=== PATIENT | female | born 1975 | race Caucasian/White ===

== ENCOUNTER 2020-04-18 10:49 | Outpatient (CLI) | payer OTHER, SELFPAY ==
[2020-04-18 11:54] LABS: Basophils Percent Auto 0.6 % (0.2-1.2); Eosinophils Absolute Auto 0.3 K/mm3 (0-0.3); Eosinophils Percent Auto 4.1 % (0-4.4); Hematocrit 36.8 % (37.0-47.0); Hemoglobin 12.4 g/dL (12.0-15.0); Immature Granulocyte Absolute 0.03 K/mm3 (0.00-0.031); Immature Granulocyte Percent A 0.4 % (0-0.5); Lymphocytes Absolute Auto 2.57 K/mm3 (0.9-3.2); Lymphocytes Percent Auto 36.2 % (18.3-44.2); Mean Corpuscular HGB Conc 33.7 g/dl (32-36); Mean Corpuscular Volume 89.1 fl (80-100); Monocytes Absolute Auto 0.7 K/mm3 (0.1-0.6); Monocytes Percent Auto 10.4 % (2.6-8.5); Neutrophils Absolute Auto 3.4 K/mm3 (1.3-6.7); Neutrophils Percent Auto 48.3 % (45.5-73.1); Platelet Count Result 226 k/mm3 (150-375); Red Blood Count 4.13 M/mm3 (4.2-5.4); Red Cell Distribution Width 12.1 % (11.5-14.5); White Blood Count 7.1 K/mm3 (4.5-10.0)
[2020-04-18 12:12] LABS: CRP 0.7 mg/dL (<1.0)
[2020-04-18 12:39] LABS: Erythrocyte Sedimentation Rate 17 mm/hr (0-20)
[2020-04-18 12:54] LABS: Rheumatoid Factor < 8.6 IU/ML (<12)
[2020-04-21 21:31] LABS: Anti Cyclic Citrullinated Pept <16 Units (<20)
== END 2020-04-18 10:50 | disposition home or self-care (01) ==
PROVIDERS: PCP Physician Assistant; Visit Provider Nurse Practitioner Family
DX: M25.50 Pain in unspecified joint (principal)
CPT/HCPCS: 36415; 85025; 85652; 86140; 86200; 86430

== ENCOUNTER 2020-05-23 00:22 | Outpatient (CLI) | payer OTHER, SELFPAY ==
[2020-05-23 18:26] LABS: SARS-CoV-2 RNA PCR Negative
== END 2020-05-23 00:23 | disposition home or self-care (01) ==
LOC: ANHCOVIDDT 00:22
PROVIDERS: Family Provider Internal Medicine; PCP Physician Assistant; Visit Provider Internal Medicine Gastroenterology
DX: Z01.812 Encounter for preprocedural laboratory examination (principal); Z20.822 Contact with and (suspected) exposure to COVID-19
CPT/HCPCS: C9803; U0003; U0005

== ENCOUNTER 2020-05-26 00:49 | Day surgery (SDC) | payer OTHER, SELFPAY ==
[2020-05-19 11:39] VITALS: BMI 31.0
[2020-05-26 12:57] VITALS: BP 104/66; PULSE 62; RESP 18; TEMP 36.8; O2SAT 99; BMI 30.2
[2020-05-26] MEDS: LACTATED RINGERS 1,000 ML 150 ML IV CONT (13:20)
--- NOTE | 2020-05-26 13:33 | WPDGICN ---
GI Consult Note Consult date/time: 05/26/20 13:33 HPI: Reason for visit is colonoscopy. This very pleasant lady's being seen in consultation the request of the primary physician. Impression: Here have a very pleasant lady with a history of chronic constipation. She does have episodes of diarrhea. His compatible with IBS. History pancreatitis. Migraine cephalgia. Recommendation: Colonoscopy. History: This very pleasant lady's being visit for chronic constipation. Patient states that she may go for several days without bowel movement. Then she will have diarrhea. Hematochezia, melena colic stools at night. Nausea, vomiting and hematemesis are denied. Patient does have a history of pancreatitis in the past. She does complain of some stomach soreness with the preparation today. Patient is here for colonoscopy. Physical examination: General: very pleasant patient in no acute distress. HEENT: Head was normocephalic sclerae is clear mouth without masses neck was supple. Heart: Rate rhythm regular without S3 or S4. Lungs: CTA. Abdomen: Soft with no guarding or rigidity. Bowel sounds were active. Neurologic: Cranial nerves 2 through 12 intact. No focal defects. No clonus. Musculoskeletal system: Revealed no joint tenderness or swelling no muscle atrophy. Extremities: Reveal no significant edema. Skin: Warm and dry with normal turgor. Mental status: intact. Patient is alert and oriented. Review of Systems Review of Systems: All systems reviewed & are unremarkable except as noted in HPI and below PMFSH Past Medical History Medical History (Updated 05/26/20 @ 13:33 by Rudy Roach DO) Anxiety Eczema HLD (hyperlipidemia) Joint pain Migraines Nausea Pancreatitis Right elbow pain Seasonal allergies Surgical History Surgical History H/O left wrist surgery Hx of section Hx of cholecystectomy Hx of tonsillectomy S/P bilateral foot surgery Family History Family History Mother Hypertension Family history of gastrointestinal disorder Other Diabetes mellitus Heart disease Malignant neoplasm Parkinsons disease Social History Social History Smoking status: Never smoker Alcohol intake: current Substance use: never Substance use type: does not use Gender identity (if verbalized by the patient): Female Spiritual care concerns: No Meds Home Medications and Allergies Home Medications Medication Instructions Recorded Confirmed Type fluoxetine 10 mg capsule 10 mg PO DAILY 10/07/19 05/19/20 History propranolol 60 mg tablet 60 mg PO Q12H 10/07/19 05/19/20 History ondansetron HCl 4 mg tablet 4 mg PO Q8H PRN 03/01/20 05/19/20 History rizatriptan 10 mg tablet 10 mg PO ONCE PRN 03/01/20 05/19/20 History Probiotic 1 cap PO DAILY 05/19/20 05/19/20 History guar gum [Benefiber (guar gum)] 1 g PO DAILY 05/19/20 05/19/20 History cuvwocbekwrp-byi-ryoj-FA-vit K 1 tablet PO DAILY 05/19/20 05/19/20 History [Adults Multivitamin] omega-3 fatty acids [[place] 3] 690 mg PO DAILY 05/19/20 05/19/20 History valacyclovir 500 mg PO BID PRN 05/19/20 05/19/20 History Allergies Allergy/AdvReac Type Severity Reaction Status Date / Time atropine [From ] Allergy Intermediate Hives Verified 05/26/20 12:56 codeine Allergy Intermediate Hives Verified 05/26/20 12:56 hyoscyamine [From ] Allergy Intermediate Hives Verified 05/26/20 12:56 phenobarbital [From ] Allergy Intermediate Hives Verified 05/26/20 12:56 scopolamine [From ] Allergy Intermediate Hives Verified 05/26/20 12:56 hydrocodone Allergy Unknown Unknown Verified 05/26/20 12:56 Vital Signs Vital Signs - 24 hr 05/26/20 12:57 Temperature 36.8 C Pulse Rate 62 Respiratory Rate 18 Blood Pressure 104/66 Pulse Oximetry 99
--- NOTE | 2020-05-26 13:35 | WPDANESEPPF ---
Anes - Initial Pre Proc Eval Procedure: Operation Date: 05/26/20 12:30 Proposed Procedures p Colonoscopy - Rudy Roach DO Date/Time: 05/26/20 13:35 Surgeon: Rudy Roach DO Pre Op Diagnosis: Constipation Patient Data Age: 45 Gender: F Height: 5 ft 4 in Weight: 79.8 kg Last Vital Signs Temp 98.2 F 05/26/20 12:57 Pulse 62 05/26/20 12:57 Resp 18 05/26/20 12:57 BP 104/66 05/26/20 12:57 Pulse Ox 99 05/26/20 12:57 Allergies Allergy/AdvReac Type Severity Reaction Status Date / Time atropine [From ] Allergy Intermediate Hives Verified 05/26/20 12:56 codeine Allergy Intermediate Hives Verified 05/26/20 12:56 hyoscyamine [From ] Allergy Intermediate Hives Verified 05/26/20 12:56 phenobarbital [From ] Allergy Intermediate Hives Verified 05/26/20 12:56 scopolamine [From ] Allergy Intermediate Hives Verified 05/26/20 12:56 hydrocodone Allergy Unknown Unknown Verified 05/26/20 12:56 Home Medications Medication Instructions Recorded Confirmed Type fluoxetine 10 mg capsule 10 mg PO DAILY 10/07/19 05/19/20 History propranolol 60 mg tablet 60 mg PO Q12H 10/07/19 05/19/20 History ondansetron HCl 4 mg tablet 4 mg PO Q8H PRN 03/01/20 05/19/20 History rizatriptan 10 mg tablet 10 mg PO ONCE PRN 03/01/20 05/19/20 History Probiotic 1 cap PO DAILY 05/19/20 05/19/20 History guar gum [Benefiber (guar gum)] 1 g PO DAILY 05/19/20 05/19/20 History cudmehzebtox-kds-yemh-FA-vit K 1 tablet PO DAILY 05/19/20 05/19/20 History [Adults Multivitamin] omega-3 fatty acids [[place] 3] 690 mg PO DAILY 05/19/20 05/19/20 History valacyclovir 500 mg PO BID PRN 05/19/20 05/19/20 History Patient hx anesthesia problems: none Family hx anesthesia problems: none PMFSH Past Medical History Medical History (Updated 05/26/20 @ 13:33 by Rudy Roach DO) Anxiety Eczema HLD (hyperlipidemia) Joint pain Migraines Nausea Pancreatitis Right elbow pain Seasonal allergies Surgical History Surgical History H/O left wrist surgery Hx of section Hx of cholecystectomy Hx of tonsillectomy S/P bilateral foot surgery Family History Family History Mother Hypertension Family history of gastrointestinal disorder Other Diabetes mellitus Heart disease Malignant neoplasm Parkinsons disease Social History Social History Smoking status: Never smoker Alcohol intake: current Substance use: never Substance use type: does not use Gender identity (if verbalized by the patient): Female Spiritual care concerns: No Anes - Eval Final PreProcedure Day of Procedure 05/26/20 13:35 Patient weight: overweight Heart: regular rate and rhythm Lungs: clear to auscultation Airway: Mallampati scale class II Neurological: alert and oriented Last oral intake: >/= 8 hours ASA classification: II Emergent: no Anesthetic plan: proceed Anesthesia type and monitoring: general GIVS and standard monitoring Informed Consent: The patient's anesthetic plan and its attendant risks and benefits were discussed with the patient/family/POA. Questions were solicited and answers provided to the satisfaction of the patient/family/POA.
[2020-05-26 14:46] VITALS: BP 96/64; PULSE 74; RESP 22; O2SAT 99
[2020-05-26 14:56] VITALS: BP 110/75; PULSE 66; RESP 16; O2SAT 100
[2020-05-26 15:06] VITALS: BP 106/71; PULSE 62; RESP 20; O2SAT 100
== END 2020-05-26 15:15 | disposition home or self-care (01) ==
PROVIDERS: Family Provider Internal Medicine; PCP Physician Assistant; Visit Provider Internal Medicine Gastroenterology
PROC: 0DJD8ZZ Inspection of Lower Intestinal Tract, Via Natural or Artificial Opening Endoscopic (ICD-10-PCS; CPT 45378; principal; 2020-05-26 12:30)
DX: K59.09 Other constipation (principal); K63.89 Other specified diseases of intestine; D12.3 Benign neoplasm of transverse colon; R19.7 Diarrhea, unspecified; E78.5 Hyperlipidemia, unspecified; F41.9 Anxiety disorder, unspecified
CPT/HCPCS: 45385; 45380; 88305; J2704; J7120

== ENCOUNTER 2020-07-28 08:43 | Outpatient (CLI) | payer OTHER, SELFPAY ==
--- NOTE | ~2020-07-28 | MR_ITS ---
EXAMINATION: MR elbow RT wo con DATE: 07/28/2020 10:10 INDICATION: Right elbow pain TECHNIQUE: Magnetic resonance imaging (MRI) of the right elbow was performed without intravenous cont rast. Sequences included coronal, axial, and sagittal PD-weighted FS FSE and coronal, axial, and sagi ttal PD-weighted FSE. COMPARISON: None FINDINGS: Osseous/other: Normal alignment. Normal marrow signal with no marrow edema, fracture, osteochondral lesion or patho logic marrow replacing process. 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 Tendons: Triceps, biceps brachii and brachialis tendons are normal. Common flexor tendon wad is normal. Mild tendinopathy of the common extensor tendon wad with small partial-thickness tear at its lateral epico ndylar origin which involves <1/3 of the cross-sectional area of the tendon wad. Ligaments: The medial and lateral collateral ligament complexes are normal. Cubital tunnel: Cubital tunnel is unremarkable with normal signal and caliber of the ulnar nerve. Fluid: Physiologic amount of fluid the elbow joint. IMPRESSION: 1. Mild tendinopathy with small mild partial-thickness tear at the lateral epicondylar origin of the common extensor tendon wad. Reviewed, dictated and finalized at location A. IMPRESSION: 1. Mild tendinopathy with small mild partial-thickness tear at the lateral epic ondylar origin of the common extensor tendon wad.
== END 2020-07-28 08:44 | disposition home or self-care (01) ==
PROVIDERS: PCP Physician Assistant; Visit Provider Nurse Practitioner Family
DX: M25.521 Pain in right elbow (principal)
CPT/HCPCS: 73221

== ENCOUNTER 2020-11-09 01:14 | Day surgery (SDC) | payer OTHER, SELFPAY ==
[2020-11-03 14:25] VITALS: BMI 31.4
--- NOTE | 2020-11-08 14:32 | WPDANESEPPF ---
Anes - Initial Pre Proc Eval Procedure: Operation Date: 11/09/20 07:30 Proposed Procedures p Right Tennis Elbow Release with Common Extensor Tendon Repair - Rayo Yan MD Date/Time: 11/08/20 14:32 Surgeon: Rayo Yan MD Pre Op Diagnosis: Right Tennis Elbow,Partial tear Lateral epicondyle Patient Data Age: 45 Gender: F Height: 1.63 m Weight: 83 kg Allergies Allergy/AdvReac Type Severity Reaction Status Date / Time atropine [From ] Allergy Intermediate Hives Verified 11/09/20 06:22 hyoscyamine [From ] Allergy Intermediate Hives Verified 11/09/20 06:22 phenobarbital [From ] Allergy Intermediate Hives Verified 11/09/20 06:22 scopolamine [From ] Allergy Intermediate Hives Verified 11/09/20 06:22 codeine AdvReac Mild AGITATION Verified 11/09/20 06:22 hydrocodone AdvReac Mild AGITATION Verified 11/09/20 06:22 Home Medications Medication Instructions Recorded Confirmed Type fluoxetine 10 mg capsule 10 mg PO DAILY 10/07/19 11/09/20 History propranolol 60 mg tablet 60 mg PO DAILY 10/07/19 11/09/20 History rizatriptan 10 mg tablet 10 mg PO ONCE PRN 03/01/20 11/09/20 History Probiotic 1 cap PO DAILY 05/19/20 11/09/20 History guar gum [Benefiber (guar gum)] 1 g PO DAILY 05/19/20 11/09/20 History qnqjxdghvbxz-gzv-dgms-FA-vit K 1 tablet PO DAILY 05/19/20 11/09/20 History [Adults Multivitamin] omega-3 fatty acids [[place] 3] 690 mg PO DAILY 05/19/20 11/09/20 History valacyclovir 500 mg PO BID PRN 05/19/20 11/09/20 History Patient hx anesthesia problems: none Family hx anesthesia problems: none PMFSH Past Medical History Medical History (Updated 09/15/20 @ 10:34 by PHIL Garza) Anxiety Eczema Elbow Injury HLD (hyperlipidemia) Migraines Pancreatitis Partial tear of common extensor tendon of elbow Seasonal allergies Surgical History Surgical History H/O left wrist surgery Hx of section Hx of cholecystectomy Hx of tonsillectomy S/P bilateral foot surgery Family History Family History Mother Hypertension Family history of gastrointestinal disorder Other Diabetes mellitus Heart disease Malignant neoplasm Parkinsons disease Social History Social History Alcohol intake: current Alcohol use details: 1 or less per week Substance use: never Substance use type: does not use Living arrangements: with family Gender identity (if verbalized by the patient): Female Sexual Orientation (if Verbalized by the Patient): Straight or Heterosexual Spiritual care concerns: No Anes - Eval Final PreProcedure Day of Procedure 11/08/20 14:32 Patient weight: overweight Heart: regular rate and rhythm Lungs: clear to auscultation Airway: Mallampati scale class II Neurological: alert and oriented Last oral intake: >/= 8 hours ASA classification: II Emergent: no Anesthetic plan: proceed Anesthesia type and monitoring: general LMA and standard monitoring Informed Consent: The patient's anesthetic plan and its attendant risks and benefits were discussed with the patient/family/POA. Questions were solicited and answers provided to the satisfaction of the patient/family/POA.
[2020-11-09] VITALS (8 sets, daily range): BP systolic 108–122; BP diastolic 64–80; PULSE 44–77; RESP 10–18; TEMP 36.2–36.6; O2SAT 97–100
[2020-11-09] MEDS: ACETAMINOPHEN 500 MG TABLET 1000 MG PO (06:36)
[2020-11-09] MEDS: CELECOXIB 200 MG CAPSULE PO (06:37)
[2020-11-09] MEDS: LACTATED RINGERS 1,000 ML 30 ML IV CONT (06:46)
--- NOTE | 2020-11-09 07:19 | WPDHPUPDATE1 ---
History and Physical Update Update Date/Time: 11/09/20 07:19 History and Physical has been reviewed, including an updated exam of the patient. There are NO changes in the patient's condition. Risks, benefits, and alternatives have been discussed and questions answered. Patient agrees to proceed with procedure.
--- NOTE | 2020-11-09 07:20 | PM.IMHP ---
H&P: HPI History of Present Illness Date/Time: 11/09/20 07:20 MELVA IS HERE FOR RIGHT ELBOW TENNIS ELBOW RELEASE AND COMMON EXTENSOR TENDON REPAIR.. HER PAIN CONTINUES AND IS NOT IMPROVING. SHE DENIES ANY NEW PROBLEMS. Chief Complaint: RIGHT ELBOW PAIN Review of Systems Review of Systems: All systems reviewed & are unremarkable except as noted in HPI and below PMFSH Past Medical History Medical History Anxiety Eczema Elbow Injury HLD (hyperlipidemia) Migraines Pancreatitis Partial tear of common extensor tendon of elbow Seasonal allergies Surgical History Surgical History H/O left wrist surgery Hx of section Hx of cholecystectomy Hx of tonsillectomy S/P bilateral foot surgery Family History Family History Mother Hypertension Family history of gastrointestinal disorder Other Diabetes mellitus Heart disease Malignant neoplasm Parkinsons disease Social History Social History Alcohol intake: current Alcohol use details: 1 or less per week Substance use: never Substance use type: does not use Living arrangements: with family Gender identity (if verbalized by the patient): Female Sexual Orientation (if Verbalized by the Patient): Straight or Heterosexual Spiritual care concerns: No Meds Home Medications and Allergies Home Medications Medication Instructions Recorded Confirmed Type fluoxetine 10 mg capsule 10 mg PO DAILY 10/07/19 11/09/20 History propranolol 60 mg tablet 60 mg PO DAILY 10/07/19 11/09/20 History rizatriptan 10 mg tablet 10 mg PO ONCE PRN 03/01/20 11/09/20 History Probiotic 1 cap PO DAILY 05/19/20 11/09/20 History guar gum [Benefiber (guar gum)] 1 g PO DAILY 05/19/20 11/09/20 History xlaxgpmywwob-vsn-umvh-FA-vit K 1 tablet PO DAILY 05/19/20 11/09/20 History [Adults Multivitamin] omega-3 fatty acids [[place] 3] 690 mg PO DAILY 05/19/20 11/09/20 History valacyclovir 500 mg PO BID PRN 05/19/20 11/09/20 History Allergies Allergy/AdvReac Type Severity Reaction Status Date / Time atropine [From ] Allergy Intermediate Hives Verified 11/09/20 06:22 hyoscyamine [From ] Allergy Intermediate Hives Verified 11/09/20 06:22 phenobarbital [From ] Allergy Intermediate Hives Verified 11/09/20 06:22 scopolamine [From ] Allergy Intermediate Hives Verified 11/09/20 06:22 codeine AdvReac Mild AGITATION Verified 11/09/20 06:22 hydrocodone AdvReac Mild AGITATION Verified 11/09/20 06:22 Vital Signs Vital Signs - 24 hr 11/09/20 06:30 Temperature 36.6 C Pulse Rate 53 L Respiratory Rate 16 Blood Pressure 114/68 Pulse Oximetry 100 Exam Extrem: Right upper extremity: normal to inspection, full ROM, normal capillary refill, elbow/forearm normal to inspection, tenderness (LATERAL EPICONDYLE), normal ROM, warmth, crepitus and distal pulses intact; no swelling, no abrasions, no lacerations, no ecchymosis and no deformity and Extremity exam: right hand normal to inspection, normal capillary refill, neuromotor exam normal, neurosensory exam normal, tendon exam normal, vascular exam ([place] INTACT), normal ROM of fingers and no swelling; no tenderness; no cyanosis, no edema and joint enlargement noted Left upper extremity: normal to inspection, full ROM, normal capillary refill and elbow/forearm normal to inspection, tenderness, normal ROM, warmth and distal pulses intact; no swelling, no abrasions, no lacerations, no ecchymosis, no crepitus (MILD CREPITUS) and no deformity; no cyanosis, no edema and joint enlargement noted Assessment and Plan Additional Plan RIGHT ELBOW COMMON EXTENSOR TENDON TEAR AND SEVERE LATERAL EPICONDYLITIS. PLAN IS FOR TENNIS ELBOW RELEASE AND COMMON EXTENSOR TENDON AT THE ELBOW REPAIR. DISCUSSED NONOPERATIVE
[2020-11-09] MEDS: ceFAZolin 2 GM/D5W 50 ML 2 GM/50 ML BAG IVPB (07:34)
[2020-11-09] MEDS: BUPIVACAINE HCL 0.5% PF 30 ML VIAL INFILTRATE (08:04)
--- NOTE | 2020-11-09 09:06 | P.OP_ITS ---
Procedure Note - Detailed Date of Procedure 11/09/20 Pre-op Diagnosis Right Tennis Elbow,Partial tear Common extensor tendon at Lateral epicondyle Post-op Diagnosis same Procedure Performed LEFT TENNIS ELBOW RELEASE WITH COMMON EXTENSOR TENDON REPAIR Surgeon Rayo Yan MD Anesthesia general Description of Procedure PATIENT WAS TAKEN TO THE OR AND INTUBATED. THE RIGHT UPPER EXTREMITY WAS PREPPED AND DRAPED STERILEY FROM THE FINGERS TO MID ARM. THE INCISION WAS MADE AT THE LATERAL EPICONDYLE DOWN TO THE SUB CUTANEOUS TISSUES THEN TO THE FASCIA. THE COMMON EXTENSOR TENDON WAS EXPOSED. THERE WAS A THIN AMOUNT OF TENDON WITH A NEAR COMPLETE TEAR AT THE ORIGIN SITE. THE TENDON WAS DEBRIDED DOWN TO B LEEDING BONE. THE TISSUE WAS EXCISED TO GOOD TENDON MATERIAL. 3 MITEC SUTURE ANCHORS WITH 0 SUTURE WERE INSERTED AT THE LATERAL EPICONDYLE THEN THE TENDON WAS ATTACHED BACK TO THE BONE. THE REPAIR WAS EXCELLENT. THE WOUND WAS WASHED. 0 VICRYL WAS USED TO APPROXIMATE THE FASCIA AND 3-0 WAS USED ON THE SUB CUTANEOUS TISSUES. 4-0 MONOCRYL WAS USED A SUB CUTICULAR STITCH AND DERMABOND WAS USED AN THE SKIN. STERILE DRESSING WAS APPLIED. PATIENT WAS EXTUBATED. Estimated Blood Loss 5 Complications No immediate complications Condition stable Disposition PACU
[2020-11-09] MEDS: fentaNYL CITRATE INJ (*CRX) 100 MCG/2 ML VIAL 25 MCG IV PUSH ×4 (09:36→10:05)
== END 2020-11-09 11:06 | disposition home or self-care (01) ==
PROVIDERS: PCP Physician Assistant; Visit Provider Orthopaedic Surgery
PROC: (CPT 24341; principal; 2020-11-09 07:30)
DX: M77.11 Lateral epicondylitis, right elbow (principal); S56.511A Strain of other extensor muscle, fascia and tendon at forearm level, right arm, initial encounter; X58.XXXA Exposure to other specified factors, initial encounter; E78.5 Hyperlipidemia, unspecified; F41.9 Anxiety disorder, unspecified; L30.9 Dermatitis, unspecified
CPT/HCPCS: 24341; A4565; A9270; C1713; J0690; J1100; J2250; J2405; J2704; J3010; J7120

== ENCOUNTER → 2021-07-20 13:20 | Outpatient (CLI) | payer OTHER, SELFPAY ==
--- NOTE | ~2021-07-20 | XR_ITS ---
EXAMINATION: XR lumbar spine 2-3V DATE: 07/20/2021 14:05 INDICATION: Low back pain TECHNIQUE: Anteroposterior and lateral views of the lumbar spine, and cone-down lateral view of the l umbosacral junction were obtained. COMPARISON: None. FINDINGS: There is no fracture, dislocation, or subluxation. There is mild loss of intervertebral dis c space height at L5-S1. Mild facet osteoarthritis is noted at L5-S1. The vertebral body heights are maintained. Surgical clips in the right upper quadrant are likely from prior cholecystectomy. The bow el gas pattern is normal. IMPRESSION: 1. Mild lumbar spondylosis. Reviewed, dictated and finalized at location B. IMPRESSION: 1. Mild lumbar spondylosis.
--- NOTE | ~2021-07-20 | US_ITS ---
EXAMINATION: US pelvic complete w TV DATE: 07/20/2021 13:50 INDICATION: Bloating and abdominal distention TECHNIQUE: Multiple transabdominal and endovaginal sonographic images of the pelvis were obtained. COMPARISON: None. FINDINGS: The uterus measures 9.9 x 4.8 x 6.7 cm. The endometrial complex measures 8 mm. The right ov laura measures 3.1 x 2.2 x 2.3 cm. The left ovary measures 2.4 x 1.3 x 1.9 cm. There is normal vascular flow in the ovaries. There is no free fluid in the pelvis. IMPRESSION: 1. No sonographic correlate for the patient's symptoms. Reviewed, dictated and finalized at location B.
== END ==
PROVIDERS: Visit Provider Physician Assistant
DX: R14.0 Abdominal distension (gaseous) (principal); M47.896 Other spondylosis, lumbar region
CPT/HCPCS: 72100; 76830; 76856

== ENCOUNTER 2022-01-23 09:25 | Emergency (ER) | payer OTHER, SELFPAY ==
[2022-01-23 09:31] VITALS: BP 122/73; PULSE 80; RESP 16; TEMP 36.8; O2SAT 98
--- NOTE | 2022-01-23 09:32 | ED.SKABFB ---
HPI - Skin/Abscess/Foreign Bdy General Chief complaint: Skin/Abscess/Foreign Body Stated complaint: body rash Time Seen by Provider: 01/23/22 09:32 Source: patient Mode of arrival: ambulatory Limitations: no limitations History of Present Illness HPI narrative: 46 y/o female presented for c/o spreading rash to arms over the last 2 days. Rash is itchy, not painful or draining. Took benadryl yesterday and is applying hydrocortisone cream as needed to the sites. Denies lip, tongue, or throat swelling, shortness of breath or wheezing. Denies changes to soap, detergent, lotion, or any other exposures. Hx eczema. Related Data Home Medications Medication Instructions Recorded Confirmed fluoxetine 10 mg capsule (Prozac) 10 mg PO DAILY 10/07/19 05/18/21 propranolol 60 mg tablet 60 mg PO DAILY 10/07/19 05/18/21 rizatriptan 10 mg tablet 10 mg PO ONCE PRN Migraine Headache 03/01/20 05/18/21 Probiotic 1 cap PO DAILY 05/19/20 05/18/21 guar gum 1 gram tablet 1 g PO DAILY 05/19/20 05/18/21 multivit with minerals-iron 18 1 tablet PO DAILY 05/19/20 05/18/21 mg-folic ac 400 mcg-vit K 25 mcg tablet (Adults Multivitamin) omega-3 fatty acids 690 mg PO DAILY 05/19/20 05/18/21 valacyclovir 500 mg tablet 500 mg PO BID PRN Outbreak 05/19/20 05/18/21 lubiprostone 8 mcg capsule mcg PO 01/23/22 Allergies Allergy/AdvReac Type Severity Reaction Status Date / Time atropine [From ] Allergy Intermediate Hives Verified 05/18/21 09:06 hyoscyamine [From ] Allergy Intermediate Hives Verified 05/18/21 09:06 phenobarbital [From ] Allergy Intermediate Hives Verified 05/18/21 09:06 scopolamine [From ] Allergy Intermediate Hives Verified 05/18/21 09:06 codeine AdvReac Mild AGITATION Verified 05/18/21 09:06 hydrocodone AdvReac Mild AGITATION Verified 05/18/21 09:06 Review of Systems Review of Systems: CONSTITUTIONAL: Denies body aches, fever, chills, or sweats. EYES: Denies visual changes, redness, or discharge. ENT: Denies rhinorrhea, congestion CARDIOVASCULAR: Denies chest pain, palpitations, or edema. RESPIRATORY: Denies cough or dyspnea. GASTROINTESTINAL: Denies abdominal pain, nausea, vomiting, or diarrhea. SKIN: reports rash, itching MUSCULOSKELETAL: Denies back pain, joint pain, or myalgia. NEUROLOGIC: Denies headache, numbness, tingling, or weakness. [facility] Past Medical History Medical History Anxiety Eczema Elbow Injury HLD (hyperlipidemia) Migraines Pancreatitis Partial tear of common extensor tendon of elbow Seasonal allergies Surgical History Surgical History H/O left wrist surgery Hx of section Hx of cholecystectomy Hx of tonsillectomy S/P bilateral foot surgery Family History Family History Mother Hypertension Family history of gastrointestinal disorder Other Diabetes mellitus Heart disease Malignant neoplasm Parkinsons disease Social History Social History Alcohol intake: current Alcohol use details: 1 or less per week Substance use: never Substance use type: does not use Gender identity (if verbalized by the patient): Female Spiritual care concerns: No Comments At time of signature, I have reviewed and agree with nursing past medical, surgical, social and family history unless otherwise noted. Please see nursing chart for further information. There is no relevant family history pertinent to the presenting complaint Exam Narrative: GENERAL: Well-appearing EYES: conjunctivae clear, and EOMI. ENT: Mucous membranes moist. Oropharynx without edema, erythema or lesions. NECK: Supple. No lymphadenopathy CHEST: Clear to auscultation. HEART: Regular rate and rhythm. SKIN: Warm, dry. Scattered red papules to left forearm and right sh
== END 2022-01-23 09:52 | disposition home or self-care (01) ==
PROVIDERS: Emergency Provider Nurse Practitioner Family; PCP Physician Assistant
DX: L30.9 Dermatitis, unspecified (principal); E78.5 Hyperlipidemia, unspecified; F41.9 Anxiety disorder, unspecified
CPT/HCPCS: 99213; G0463

== ENCOUNTER → 2022-08-15 13:42 | Outpatient (CLI) | payer BC, SELFPAY ==
--- NOTE | ~2022-08-15 | MR_ITS ---
EXAMINATION: MR brain/brain stem wo/w con DATE: 08/15/2022 17:27 CDT INDICATION: Visual disturbance TECHNIQUE: Magnetic resonance imaging (MRI) of the brain and brainstem was performed without and with 15 cc MultiHance intravenous contrast. Sequences included sagittal and axial T1-weighted SE, axial d iffusion-weighted FS SE, axial T2*-weighted GRE, axial T2-weighted FLAIR Propeller, and axial T2-weig hted Propeller. Apparent diffusion coefficient (ADC) maps were created. COMPARISON: MRI dated 12/27/2005 FINDINGS: The brain volume and ventricular system are within normal limits. The brain parenchymal si gnal intensity pattern and mcpherson/white matter is normal and there is no evidence of hemorrhage, space occupying masses or infarctions. No evidence for pineal cyst on the current examination. The flow signal voids of the major arterial structures about the [place] and within the jasper r dural venous sinuses appear grossly unremarkable and patent. The seventh and eighth cranial nerve complexes are normal. The mid sagittal image demonstrates a normal craniovertebral junction and pierre us callosum. The paranasal sinuses are grossly unremarkable. No abnormal contrast enhancement was appreciated. IMPRESSION: 1: Unremarkable MRI of the brain. Reviewed, dictated and finalized at location A.
== END ==
PROVIDERS: PCP Physician Assistant; Visit Provider Physician Assistant
DX: H53.9 Unspecified visual disturbance (principal)
CPT/HCPCS: 70553; A9577

== ENCOUNTER 2024-01-01 15:55 | Outpatient (CLI) | payer BC, SELFPAY ==
--- NOTE | ~2024-01-01 | CT_ITS ---
EXAMINATION: CT sinus wo con DATE: 01/01/2024 16:08 INDICATION: Nasal obstruction. TECHNIQUE: Computed tomography (CT) of the paranasal sinuses was performed without intravenous contra st. Iterative reconstruction technique was employed. The dose-length product was 392.92 mGy-cm. COMPARISON: None FINDINGS: The frontal sinuses are clear. There is mild mucosal thickening in the bilateral ethmoid si nuses. The sphenoid and maxillary sinuses are clear. There is leftward deviation of the nasal septum. The ostiomeatal units are patent. Right middle turbinate is paradoxical. IMPRESSION: 1. Mild mucosal thickening in the ethmoid sinuses. 2. Leftward deviation of the nasal septum. Reviewed, dictated and finalized at location A.
== END 2024-01-01 15:56 | disposition home or self-care (01) ==
PROVIDERS: PCP Physician Assistant
DX: J34.89 Other specified disorders of nose and nasal sinuses (principal); J34.2 Deviated nasal septum
CPT/HCPCS: 70486

== ENCOUNTER 2024-01-02 09:47 | Emergency (ER) | payer BC, SELFPAY ==
[2024-01-02 10:14] VITALS: BP 111/73; PULSE 87; RESP 16; TEMP 36.1; O2SAT 98
--- NOTE | 2024-01-02 10:15 | ED.EYEPROB ---
HPI - Eye Problem General Chief complaint: Eye Problems Stated complaint: Swollen Eyes Source: patient, RN notes reviewed and old records reviewed Mode of arrival: ambulatory Limitations: no limitations History of Present Illness HPI Narrative: Patient presents with complaints of swelling itching to the skin surrounding the eyes. She used a new sleep mask last night, awakened this morning with her symptoms. She reports intense itching, says the swelling has somewhat improved. She has used triamcinolone cream, took 50 mg of Benadryl, and took the 1st dose of a Medrol Dosepak prior to arrival. She denies any injury or trauma. She denies any fever, chills, sweats. Denies any visual disturbance. Voices no other concerns or complaints at this time Related Data Home Medications Medication Instructions Recorded Confirmed fluoxetine 10 mg capsule (Prozac) 10 mg PO DAILY 10/07/19 05/18/21 propranolol 60 mg tablet 60 mg PO DAILY 10/07/19 05/18/21 rizatriptan 10 mg tablet 10 mg PO ONCE PRN Migraine Headache 03/01/20 05/18/21 Probiotic 1 cap PO DAILY 05/19/20 05/18/21 multivit with minerals-iron 18 1 tablet PO DAILY 05/19/20 05/18/21 mg-folic ac 400 mcg-vit K 25 mcg tablet (Adults Multivitamin) omega-3 fatty acids 690 mg PO DAILY 05/19/20 05/18/21 valacyclovir 500 mg tablet 500 mg PO BID PRN Outbreak 05/19/20 05/18/21 lubiprostone 8 mcg capsule mcg PO 01/23/22 Allergies Allergy/AdvReac Type Severity Reaction Status Date / Time atropine [From ] Allergy Intermediate Hives Verified 01/02/24 10:10 hyoscyamine [From ] Allergy Intermediate Hives Verified 01/02/24 10:10 phenobarbital [From ] Allergy Intermediate Hives Verified 01/02/24 10:10 scopolamine [From ] Allergy Intermediate Hives Verified 01/02/24 10:10 codeine AdvReac Mild AGITATION Verified 01/02/24 10:10 hydrocodone AdvReac Mild AGITATION Verified 01/02/24 10:10 Review of Systems Review of Systems: All systems reviewed & are unremarkable except as noted in HPI and below Constitutional: Constitutional: Reports no additional constitutional complaints Eyes: Eyes: Reports as per HPI, Reports no additional eye complaints, Denies blurry vision and Denies change in vision ENT: Reports system reviewed and no additional complaints, except as documented Cardiovascular: Cardiovascular: Reports no additional cardiovascular complaints Respiratory: Respiratory: Reports no additional respiratory complaints Gastrointestinal: Gastrointestinal: Reports no additional gastrointestinal complaints PMFSH Past Medical History Medical History Anxiety Eczema Elbow Injury HLD (hyperlipidemia) Migraines Pancreatitis Partial tear of common extensor tendon of elbow Seasonal allergies Surgical History Surgical History H/O left wrist surgery Hx of section Hx of cholecystectomy Hx of tonsillectomy S/P bilateral foot surgery Family History Family History Mother Hypertension Family history of gastrointestinal disorder Other Diabetes mellitus Heart disease Malignant neoplasm Parkinsons disease Social History Social History Alcohol intake: current Alcohol use details: 1 or less per week Substance use: never Substance use type: does not use Living arrangements: with family Gender identity (if verbalized by the patient): Female Spiritual care concerns: No Comments At the time of my signature, I reviewed and agree with the nursing past medical, surgical, social, and family history. There is no relevant family history pertinent to the patient complaint. Exam Const: General: cooperative, no acute distress, alert and awake Orientation/consciousness: oriented to person, oriented to place and oriente
== END 2024-01-02 10:32 | disposition home or self-care (01) ==
PROVIDERS: Emergency Provider Nurse Practitioner Family; PCP Physician Assistant
DX: T78.40XA Allergy, unspecified, initial encounter (principal); E78.5 Hyperlipidemia, unspecified; F41.9 Anxiety disorder, unspecified
CPT/HCPCS: 99211; G0463